=== PATIENT | male | born 1960 | race Caucasian/White ===

== ENCOUNTER 2017-02-24 05:39 | Day surgery (SDC) | payer BC ==
--- NOTE | ~2017-02-24 | EGD ---
EGD REPORT [facility] [address] [address] NAME: CLEMENTE LAZO : 60 STATUS : REG [facility]#: [id number] AGE: 56 ADM/REG DATE : 02/24/17 MR#: [id number] REPORT SERV DATE: 02/24/17 DICTATED BY: SUNIL HANSON DATE: 02/24/17 REPORT STATUS : Draft [facility]ANS[facility]IBED BY: [facility] DATE: 02/24/17 End[facility] Center Patient Name: Clemente Lazo Date of : 1960 Attending MD: SUNIL HANSON MD Procedure Date No Time: 02/24/2017 Procedure: Colonoscopy Indications: High risk colon cancer surveillance: Crohn's disease of 8+ years duration, Last colonoscopy: 2011 Referring MD: KYLER MALONE Medicines: See the Anesthesia note for documentation of the administered medications Complications: No immediate complications. Procedure: Pre-Anesthesia Assessment: - ASA Grade Assessment: III - A patient with severe systemic disease. - Prior to the procedure, a History and Physical was performed, and patient medications and allergies were reviewed. The patient's tolerance of previous anesthesia was also reviewed. The risks and benefits of the procedure and the sedation options and risks were discussed with the patient. All questions were answered, and informed consent was obtained. Prior Anticoagulants: The patient has taken Plavix (clopidogrel), last dose was and was not stopped. After reviewing the risks and benefits, the patient was deemed in satisfactory condition to undergo the procedure. After I obtained informed consent, the scope was passed under direct vision. Throughout the procedure, the patient's blood pressure, pulse, and oxygen saturations were monitored continuously. The PCF [id number] was introduced through the anus and advanced to the terminal ileum, with identification of the appendiceal orifice and IC valve. The colonoscopy was performed without difficulty. The patient tolerated the procedure well. The quality of the bowel preparation was adequate. Findings: The perianal and digital rectal examinations were normal. Internal hemorrhoids were found during retroflexion and were small. No colitis nor ileitis A sessile polyp was found at the ileocecal valve. The polyp was 15 mm in size. The polyp was removed with a piecemeal technique using a hot snare. Resection and retrieval were complete. Two sessile polyps were found in the cecum. The polyps were 10 mm in EGD REPORT [address] [address] NAME: CLEMENTE LAZO : 60 STATUS : REG [facility]#: [id number] AGE: 56 ADM/REG DATE : 02/24/17 MR#: [id number] REPORT SERV DATE: 02/24/17 DICTATED BY: SUNIL HANSON DATE: 02/24/17 REPORT STATUS : Draft TRANSCRIBED BY: [employer] DATE: 02/24/17 size. These polyps were removed with a hot snare. Resection and retrieval were complete. The ascending colon appeared normal. Biopsies were taken with a cold forceps for histology. The transverse colon appeared normal. Biopsies were taken with a cold forceps for histology. The descending colon appeared normal. Biopsies were taken with a cold forceps for histology. The sigmoid colon appeared normal. Biopsies were taken with a cold forceps for histology. Two sessile polyps were found in the rectum. The polyps were small in size. These polyps were removed with a cold biopsy forceps. Resection and retrieval were complete. The rectum appeared normal. Biopsies were taken with a cold forceps for histology. Impression: - Internal hemorrhoids. - No colitis nor ileitis - One 15 mm polyp at the ileocecal valve. Resected and retrieved. - Two 10 mm polyps in the cecum. Resected and retrieved. - The ascending colon is normal. Biopsied. - The transverse colon is normal. Biopsied. - The descending colon is normal. Biopsied. - The sigmoid colon is normal. Biopsied. - Two small polyps in the rectum. Resected and retrieved. - The rectum is normal. Biopsied. Recommendation: - Patient has a contact number available for emergencies. The signs and symptoms of potential delayed complications were discussed with the patient. Return to normal activities tomorrow. Written discharge instructions were provided to the patient. - Regular diet. - Continue present medications. - Repeat colonoscopy for surveillance based on pathology results. - FOR YOUR BIOPSY RESULTS: Please go to [email or web address] and register to receive your results via the portal. Your biopsy results will be posted there in about 7 to 10 days. IF you do not see result in 10 days, call office. - Return to my office in 6 weeks. Procedure Code(s): --- Professional --- 30346, Colonoscopy, flexible, proximal to splenic flexure; with removal of tumor(s), polyp(s), or other EGD REPORT [address] [place]. [address] NAME: CLEMENTE LAZO : 60 STATUS : REG [facility] PAT#: [id number] AGE: 56 ADM/REG DATE : 02/24/17 MR#: [id number] REPORT SERV DATE: 02/24/17 DICTATED BY: SUNIL HANSON DATE: 02/24/17 REPORT STATUS : Draft TRANSCRIBED BY: [employer] DATE: 02/24/17 lesion(s) by snare technique 69878, 59, Colonoscopy, flexible, proximal to splenic flexure; with biopsy, single or multiple Diagnosis Code(s): --- Professional --- K64.8, Other hemorrhoids K62.1, Rectal polyp D12.0, Benign neoplasm of cecum CPT copyright 2013 [employer]. All rights reserved. The codes documented in this report are preliminary and upon groundman/lineman review may be revised to meet current compliance requirements. Sunil Hanson MD SUNIL HANSON MD 02/24/2017 7:41 AM This report has been signed electronically. Number of Addenda: 0 Note Initiated On: 02/24/2017 6:59 AM Scope Withdrawal Time 0 hours 27 minutes 4 seconds [id number] [id number]
[~2017-02-24 05:39] MED LIST: ABILIFY10 PO; AMARYL2 PO; ASA5GR PO; ASACOL PO; CALTRA600D PO; CYMBALTA60 PO; D 5000 PO; FISH-EPA1000 MG PO; GARLIC PO; GINKGO BILO2 PO; GRALISE600 MG PO; JANUMET1 TA1 PO; MAX25 PO; MAXIDE PO; MOBIC15 MG PO; PAXIL CR25 MG PO; PLAVIX PO; PRAVACHOL40 MG PO; PRILO PO; ROXICODONE15 MG PO; ROXICODONE30 MG PO; TESTOST CYP100 MG/ML SQ; VERELAN PM300 MG PO; XANAX1 MG PO; ZOCOR20 PO; ZYPREXA10 MG PO; [UNRECOGNIZED DRUG - OTHER] PO
== END 2017-02-24 23:59 | disposition home or self-care (01) ==
LOC: DMU 05:39
PROVIDERS: Internal Medicine Gastroenterology
PROC: 0DBP8ZZ Excision of Rectum, Via Natural or Artificial Opening Endoscopic (ICD-10-PCS; 2017-02-24)
PROC: 0DBH8ZZ Excision of Cecum, Via Natural or Artificial Opening Endoscopic (ICD-10-PCS; 2017-02-24)
PROC: 0DBK8ZX Excision of Ascending Colon, Via Natural or Artificial Opening Endoscopic, Diagnostic (ICD-10-PCS; 2017-02-24)
PROC: 0DBN8ZX Excision of Sigmoid Colon, Via Natural or Artificial Opening Endoscopic, Diagnostic (ICD-10-PCS; 2017-02-24)
PROC: 0DBM8ZX Excision of Descending Colon, Via Natural or Artificial Opening Endoscopic, Diagnostic (ICD-10-PCS; 2017-02-24)
PROC: 0DBL8ZX Excision of Transverse Colon, Via Natural or Artificial Opening Endoscopic, Diagnostic (ICD-10-PCS; 2017-02-24)
PROC: 0DBC8ZZ Excision of Ileocecal Valve, Via Natural or Artificial Opening Endoscopic (ICD-10-PCS; principal; 2017-02-24 07:30)
DX: Z12.11 Encounter for screening for malignant neoplasm of colon (principal); K62.1 Rectal polyp; K64.8 Other hemorrhoids; K63.5 Polyp of colon; F31.9 Bipolar disorder, unspecified; I10 Essential (primary) hypertension; E11.9 Type 2 diabetes mellitus without complications; K52.9 Noninfective gastroenteritis and colitis, unspecified; F32.9 Major depressive disorder, single episode, unspecified; K50.90 Crohn's disease, unspecified, without complications; M19.90 Unspecified osteoarthritis, unspecified site; F17.210 Nicotine dependence, cigarettes, uncomplicated; E78.00 Pure hypercholesterolemia, unspecified; Z86.73 Personal history of transient ischemic attack (TIA), and cerebral infarction without residual deficits; Z98.890 Other specified postprocedural states; Z91.09 Other allergy status, other than to drugs and biological substances; Z79.899 Other long term (current) drug therapy; Z79.891 Long term (current) use of opiate analgesic
CPT/HCPCS: 82962; 88305

== ENCOUNTER 2017-03-01 17:50 | Emergency (ER) | payer BC ==
[2017-03-01 18:07] LABS: BASOPHILS 0.5 %; BASOPHILS ABSOLUTE 0.06 10/3/uL (0.0-0.16); EOSINOPHILS 2.3 %; EOSINOPHILS ABSOLUTE 0.27 10/3/uL (0.0-0.53); ER CBC TAT 0 Hrs 03 Mins; HEMATOCRIT 48.9 % (40.0-51.0); HEMOGLOBIN 17.2 g/dL (13.6-17.8); IMMATURE GRANULOCYTES 0.4 %; IMMATURE GRANULOCYTES ABSOLUTE 0.05 10/3/uL (0.0-0.11); LYMPHOCYTES 19.7 %; LYMPHOCYTES ABSOLUTE 2.28 10/3/uL (0.67-4.30); MEAN CORPUSCULAR HEMOGLOB 33.7 pg (26.0-34.0); MEAN CORPUSCULAR VOLUME 95.9 fL (80-100); MEAN PLATELET VOLUME 11.2 fL (9.2-13.0); MONOCYTES 6.7 %; MONOCYTES ABSOLUTE 0.78 10/3/uL (0.21-1.20); NEUTROPHILS 70.4 %; NEUTROPHILS ABSOLUTE 8.14 10/3/uL (2.02-8.40); PLATELET COUNT 207 10/3/uL (150-400); RBC DISTRIBUTION WIDTH 13.5 % (12.0-16.0); WHITE BLOOD CELLS 11.6 10/3/uL (4.5-10.5)
[2017-03-01 18:08] LABS: MANUAL DIFF NO %; MEAN CORPUS HGB CONC 35.2 g/dL (32.0-36.0)
[2017-03-01 18:19] LABS: PROTIME (NOT ORD) 13.4 SEC (12.0-14.5)
[2017-03-01 18:25] LABS: A/G RATIO 0.9 (0.7-1.9); ALBUMIN 3.7 G/DL (3.5-5.0); ALKALINE PHOSPHATASE 91 U/L (45-117); BUN (BLOOD UREA NITROGEN) 13 MG/DL (6-23); CALCIUM, SERUM 9.1 MG/DL (8.5-10.4); CHLORIDE, SERUM 107 MMOL/L (96-112); CREATININE 1.04 MG/DL (0.70-1.30); GFR AFRICAN AMERICAN 93 ML/MIN (>=60); GFR NON AFRICAN AMERICAN 80 ML/MIN (>=60); GLUCOSE, SERUM 109 MG/DL (60-99); SGOT(AST) 12 U/L (5-40); SGPT(ALT) 22 U/L (5-65); SODIUM, SERUM 140 MMOL/L (135-148); TOTAL BILIRUBIN 0.6 MG/DL (0-1.2); TOTAL PROTEIN 7.6 G/DL (6.0-8.5)
[2017-03-01 18:26] LABS: CO2 (CARBON DIOXIDE) 23 MMOL/L (24-34); GLOBULIN 3.9 G/DL (2.5-4.1); POTASSIUM, SERUM 3.7 MMOL/L (3.5-5.3)
== END 2017-03-01 21:55 | disposition left against medical advice (07) ==
LOC: ER 17:50
PROVIDERS: Emergency Medicine
DX: Z53.21 Procedure and treatment not carried out due to patient leaving prior to being seen by health care provider (principal)
CPT/HCPCS: 36415; 80053; 85025; 85610; 85730; 86850; 86900; 86901; 93005